=== PATIENT | female | born 1950 | race Caucasian/White ===

== ENCOUNTER → 2017-12-03 | Outpatient (CLI) | payer MEDICARE, OTHER ==
[~2017-12-03] MED LIST: ACID1TAB PO; ALLO100T PO; AMLO1CAP8 PO; CHOL10007 PO; DILT120C63 PO; DILT240C90 PO; FAMO40TA6 PO; HYDR-3820 PO; HYDR12.56 PO; IPRA3AMP INH; LEVO750T9 PO; METF-479 PO; METO-333 PO; NEBU1KIT3 MC; OMG1KC PO; PRAV40TA2 PO; UBID1CAP53 PO
--- NOTE | 2017-12-03 11:14 | Diagnostic Imaging Report ---
INDICATION: Right shoulder pain and decreased range of motion. Time of exam 11:10 AM 2 views of the right shoulder demonstrate normal glenohumeral and acromioclavicular alignment. Acromion humeral space is normal. No fracture or dislocation is identified. IMPRESSION: No acute bony abnormalities detected. Report was called to Whitley Retana nurse practitioner, by ruben at 11:13 am. Dictated by: Dictated on workstation # [id number]
== END ==
LOC: RAD 10:39
PROVIDERS: ATTEND Nurse Practitioner Family
DX: M25.511 Pain in right shoulder (principal)
CPT/HCPCS: 73030

== ENCOUNTER → 2018-01-29 | Outpatient (CLI) | payer MEDICARE, OTHER ==
[~2018-01-29] MED LIST changes: +CATHETER FLUSH 10 ML SYR IV PRN; +IOHEXOL 350 MG/ML 100 ML (OMNIPAQUE 350) VIAL IV ONE; +NS 250 ML (IVPB) BAG IV ONE
[2018-01-29 11:58] LABS: MEAN PLATELET VOLUME 9.7 FL (7.4-10.4); RED BLOOD COUNT 5.21 10^6/uL (4.35-5.85); RED CELL DISTRIBUTION WIDTH 15.3 % (10.0-14.5); WHITE BLOOD COUNT 13.4 10^3/uL (4.3-11.0)
[2018-01-29 12:20] LABS: ALANINE AMINOTRANSFERASE 12 U/L (0-55); ALBUMIN 3.7 GM/DL (3.2-4.5); ALKALINE PHOSPHATASE 107 U/L (40-136); BILIRUBIN,TOTAL 0.7 MG/DL (0.1-1.0); BUN/CREATININE RATIO 18; CALCIUM 9.5 MG/DL (8.5-10.1); CARBON DIOXIDE 26 MMOL/L (21-32); CHLORIDE 101 MMOL/L (98-107); CREATININE SERUM 0.85 MG/DL (0.60-1.30); GFR ESTIMATED > 60; GLUCOSE 98 MG/DL (70-105); POTASSIUM 3.7 MMOL/L (3.6-5.0); SODIUM 139 MMOL/L (135-145); TOTAL PROTEIN 7.2 GM/DL (6.4-8.2)
--- NOTE | 2018-01-29 12:41 | Diagnostic Imaging Report ---
INDICATION: Fever and abdominal pain. COMPARISON: None available. FINDINGS: Nonobstructive bowel gas pattern. There is a dacyk-zj-nkcyufna amount of stool present throughout the colon. Suggestion of left basilar patchy pulmonary opacities. No evidence for intraperitoneal air. Cholecystectomy. IMPRESSION: 1. Suggestion of left lower lobe pulmonary opacities. PA and lateral chest radiographs are advised for further assessment. 2. Nonobstructive bowel gas pattern. Dictated by: Dictated on workstation # [id number]
--- NOTE | 2018-01-29 13:15 | Diagnostic Imaging Report ---
PROCEDURE: CT abdomen and pelvis with and without contrast. TECHNIQUE: Precontrast acquisitions were acquired through the abdomen and pelvis. Multiple contiguous axial images were obtained through the abdomen and pelvis after the administration of intravenous contrast. INDICATION: Right-sided pain, fever. FINDINGS: The appendix is well visualized and is normal, seen only on the dynamic phase. There is a subtle hypodense nodule in the right hepatic lobe posteriorly and superiorly measuring 1 cm. This is imperceptible on the delayed images. No mass effect. Hepatic vascularity showed normal enhancement. There is no bile duct dilatation. The gallbladder is surgically absent. The pancreas is normal. The adrenals are negative. The spleen is negative. The unobstructed kidneys appeared unremarkable. There is no bowel obstruction. There is no ascites, abscess, hematoma or fluid collection. The uterus absent. There is no adnexal lesion. The urinary bladder normal. There is no pneumatosis or free gas. IMPRESSION: 1. Subtle hypodense nodule in right hepatic lobe 1 cm seen only during the dynamic images. This is of uncertain significance and etiology. Given the absence of priors to confirm its long-term stability, would suggest a repeat pre and postcontrast enhanced abdominal CT in 6 months' time. Given the otherwise normal exam, this is likely incidental. 2. Nonfocal nonacute unobstructed urinary tracts. Negative appendix with no adnexal abnormality or acute-appearing abnormalities. Dictated by: Dictated on workstation # [id number]
== END ==
LOC: RAD 11:40
PROVIDERS: ATTEND Nurse Practitioner Family
DX: K76.89 Other specified diseases of liver (principal); R50.9 Fever, unspecified
CPT/HCPCS: 36415; 74019; 74178; 80053; 85027; 85652

== ENCOUNTER 2019-12-14 10:13 | Outpatient (CLI) | payer MEDICARE, OTHER ==
[~2019-12-14] VITALS: Ht 165.1 cm; Wt 96.8 kg
[~2019-12-14 10:13] MED LIST changes: +ACHYD1T PO; +AMLO-77 PO; -AMLO1CAP8 PO; -CATHETER FLUSH 10 ML SYR IV PRN; -DILT120C63 PO; +DILT120C88 PO; -HYDR-3820 PO; -IOHEXOL 350 MG/ML 100 ML (OMNIPAQUE 350) VIAL IV ONE; -IPRA3AMP INH; +IPRA3AMP31 INH; -NS 250 ML (IVPB) BAG IV ONE
[2019-12-14] MEDS ORDERED: COLE1TAB PO (10:24)
[2019-12-14] MEDS ORDERED: CHOL200078 PO (10:24)
[2019-12-14] MEDS ORDERED: POTA10TA36 PO (10:24)
[2019-12-14] MEDS ORDERED: HYDR12.56 PO (10:24)
[2019-12-14] MEDS ORDERED: METF-397 PO (10:24)
[2019-12-14] MEDS ORDERED: DILT120C53 PO (10:24)
[2019-12-14] MEDS ORDERED: METO50TA15 PO (10:24)
[2019-12-14] MEDS ORDERED: FERR240T15 PO (10:24)
[2019-12-14] MEDS ORDERED: LORA10TA52 PO (10:24)
[2019-12-14] MEDS ORDERED: RIVA20TA PO (10:24)
== END 2019-12-14 10:31 | disposition home or self-care (01) ==
LOC: PREOP 10:13
PROVIDERS: ATTEND Internal Medicine
DX: Z01.818 Encounter for other preprocedural examination (principal)

== ENCOUNTER 2019-12-16 07:54 | Day surgery (SDC) | payer MEDICARE, OTHER ==
--- NOTE | 2019-12-13 10:18 | HISTORY AND PHYSICAL ---
DATE OF SERVICE: COLONOSCOPY HISTORY AND PHYSICAL HISTORY OF PRESENT ILLNESS: The patient is a 69-year-old white female referred by Dr. Palafox for colonoscopy for evaluation of bloody diarrhea. She reports that she actually has a longstanding history of diarrhea and has been told that she had irritable bowel syndrome in the past. Her norm is 2 to 3 stools without blood. Over the past month, she has had 5 to 6 stools with intermittent bright red blood and some mild lower abdominal cramping. She was hospitalized in June for pneumonia, it was complicated by Clostridium difficile for which she took an antibiotic, which resolved her diarrhea. She has not been on any subsequent antibiotics and reports that her symptoms previously in regards to diarrhea were much more severe than the current 5 to 6 stools and at that time, she had no evidence for blood. She had undergone colonoscopy 3 years ago, reportedly unremarkable. She was given colestipol at that time by Dr. Robbins. She reports has not noticed much change in her diarrhea. She underwent cholecystectomy 4 years ago, but reports her diarrhea really was not any worse after than prior. PAST MEDICAL HISTORY: Significant for paroxysmal atrial fibrillation. She states that she had some heart failure due to fluid overload after cholecystectomy. When her atrial fibrillation was noted she has had no problems since, but has been on Xarelto. She has a history of gout and hypertension as well as seasonal allergies and hyperlipidemia with no known history of cardiovascular disease. FAMILY HISTORY: Mother at age 93 of ischemic bowel. No family history for colon cancer is noted. Father at age of 64 of COPD, was a heavy smoker. Has a sister who at age 73 of bladder cancer and a brother who is living at age 65 post-nephrectomy for renal cell carcinoma. REVIEW OF SYSTEMS: CONSTITUTIONAL: She denies any night sweats, chills, fever or change in weight. CARDIOVASCULAR: She denies orthopnea, PND, pedal edema, dyspnea on exertion, palpitations or heart racing. PULMONARY: She denies cough, dyspnea or wheezing. PHYSICAL EXAMINATION: GENERAL: Reveals a pleasant overweight white female in no acute distress. VITAL SIGNS: Weight 213 pounds, blood pressure 120/88. HEENT: Unremarkable. No evidence for pallor. Sclerae nonicteric. NECK: Revealed no JVD, adenopathy or bruits. CHEST: Clear to auscultation. CARDIOVASCULAR: Reveals regular rate and rhythm without murmur, S3 or S4. ABDOMEN: Obese, bowel sounds positive. There is no mass or organomegaly noted. Mild tenderness without rebound or guarding in bilateral lower quadrant of the abdomen. Elsewhere nontender. No bruits noted. EXTREMITIES: Reveal no cyanosis, clubbing or edema. ASSESSMENT AND PLAN: The patient is set up for diagnostic colonoscopy for evaluation of bloody diarrhea without evidence to suggest underlying current sepsis. Considering history of irritable bowel we will be doing the procedure under anesthesia with Diprivan. Prep instructions with Suprep kit were given and questions were answered. I thank you for the referral of this pleasant lady. Job ID: [id number] DocumentID: [id number] Dictated Date: 12/07/2019 14:34:03 Grain Merchandising Manager Date: 12/07/2019 15:24:00 Dictated By: ADY LOPEZ MD
[~2019-12-16] VITALS: Ht 165.1 cm; Wt 96.8 kg
[~2019-12-16 07:54] MED LIST changes: +CHOL200078 PO; +COLE1TAB PO; +DILT120C53 PO; +FERR240T15 PO; +LORA10TA52 PO; +METF-397 PO; +METO50TA15 PO; +POTA10TA36 PO; +RIVA20TA PO
[2019-12-16] MEDS ORDERED: LACTATED RINGERS 1,000 ML IV ONE (07:58)
[2019-12-16 08:05] VITALS: BP 134/74
[2019-12-16] MEDS ORDERED: LACTATED RINGERS 1,000 ML IV PRN (08:15)
[2019-12-16] MEDS ORDERED: LIDOCAINE JELLY 2% 6 ML SYRINGE MM PRN (08:15)
[2019-12-16] MEDS ORDERED: PROPOFOL INJECTION 50 ML IV ONE (09:14)
[2019-12-16] MEDS ORDERED: LIDOCAINE JELLY 2% 6 ML SYRINGE ONE (09:22)
[2019-12-16 09:50] VITALS: BP 116/59
[2019-12-16 09:55] VITALS: BP 131/64
[2019-12-16 10:00] VITALS: BP_SYST 122; BP_SYST 150; BP_DIAS 61; BP_DIAS 76
[2019-12-16 10:30] VITALS: BP 120/71
[2019-12-16 10:58] VITALS: BP 120/71
--- NOTE | 2019-12-16 11:29 | Anesthesia-General Post-Op ---
MAC Patient Condition Mental Status/LOC: Same as Preop Cardiovascular: Satisfactory Nausea/Vomiting: Absent Respiratory: Satisfactory Pain: Controlled Complications: Absent Post Op Complications Complications None Follow Up Care/Instructions Patient Instructions None needed. Anesthesiology Discharge Order Discharge Order Patient is doing well, no complaints, stable vital signs, no apparent adverse anesthesia problems. No complications reported per nursing. ALEX YARBROUGH CRNA Dec 16, 2019 11:29
--- NOTE | 2019-12-16 12:03 | Pre-Op Note & Conscious Sedat ---
Pre-Operative Progress Note H&P Reviewed The H&P was reviewed, patient examined and no changes noted. Date H&P Reviewed: Dec 16, 2019 Time H&P Reviewed: 08:00 Conscious Sedation Pre-Proced ASA Score 3 For ASA 3 and 4: Consider anesthesia and medical clearance. Also, for patients with a history of failed moderate sedation consider anesthesia. Airway Lungs Heart ASA score ASA 1: a normal healthy patient ASA 2: a patient with a mild systemic disease (mid diabetes, controlled hypertension, obesity ASA 3: a patient with a severe systemic disease that limits activity (angina, COPD, prior Myocardial infarction) ASA 4: a patient with an incapacitating disease that is a constant threat to life (CHF, renal failure) ASA 5: a moribund patient not expected to survive 24 hrs. (ruptured aneurysm) ASA 6: a declared brain- patient whose organs are being harvested. For emergent operations, add the letter E after the classification Mallampati Classification Grade 2 Sedation Plan Analgesia, Amnesia, Plan communicated to team members, Discussed options with patient/fam, Discussed risks with patient/fam The patient is an appropriate candidate to undergo the planned procedure, sedation, and anesthesia. The patient immediately re-assessed prior to indication. ADY LOPEZ MD Dec 16, 2019 12:03
--- NOTE | 2019-12-17 00:27 | OPERATIVE REPORT ---
DATE OF SERVICE: COLONOSCOPY SUMMARY INDICATIONS FOR THE PROCEDURE: Diagnostic colonoscopy for evaluation of bloody diarrhea. The patient was placed in the left lateral decubitus position. Prior to undergoing colonoscopy, digital rectal evaluation was performed. Anal sphincter tone was normal and the perianal reflexes intact. No abnormalities were noted on digital inspection of the anal canal or distal rectal vault. The colonoscope was then inserted into the rectum and under direct visualization advanced to the cecum. The cecum was identified by identification of the ileocecal valve and cecal strap. Photographic documentation was obtained. A careful inspection was made as the colonoscope was withdrawn. FINDINGS: There were no evidence for internal and external hemorrhoids. No blood was noted in the colon. There was some mild erythema noted in the distal rectum not to the usual degree to suggest underlying ulcerative proctitis. However, biopsies were obtained for this as well as for evaluation for underlying microscopic colitis. If biopsies are unremarkable I strongly suspect irritable bowel syndrome. The patient's intermittent diarrhea is long-standing and she did have a lot of spasm during the procedure, which was done under Diprivan anesthesia, irritable bowel syndrome,. The patient was reassured by today's findings. If biopsies do reveal any evidence for ulcerative proctitis or microscopic colitis, we will make further treatment recommendations. I thank you for the referral of this pleasant lady. Job ID: [id number] DocumentID: [id number] Dictated Date: 12/16/2019 12:38:24 Textiles Sales Representative Date: 12/16/2019 17:38:37 Dictated By: ADY LOPEZ MD MTDD
== END 2019-12-16 11:10 | disposition home or self-care (01) ==
LOC: ENDO 07:54
PROVIDERS: ATTEND Internal Medicine
DX: K63.89 Other specified diseases of intestine (principal); R19.7 Diarrhea, unspecified; I48.0 Paroxysmal atrial fibrillation; I10 Essential (primary) hypertension; J30.2 Other seasonal allergic rhinitis; M10.9 Gout, unspecified; Z79.01 Long term (current) use of anticoagulants

== ENCOUNTER → 2020-05-02 | Outpatient (CLI) | payer MEDICARE, OTHER ==
--- NOTE | 2020-05-02 14:42 | Diagnostic Imaging Report ---
INDICATION: Pain and swelling. COMPARISON: None available. TECHNIQUE: Three radiographs of the right knee dated May 02, 2020. FINDINGS: No acute fracture or dislocation. No destructive osseous process. Joint spaces are well maintained for age. No joint effusion. No suspicious radiopaque foreign body. IMPRESSION: Unremarkable examination for age without acute osseous abnormality. Dictated by: Dictated on workstation # [id number]
== END ==
LOC: RAD 13:52
PROVIDERS: ATTEND Nurse Practitioner Family
DX: M25.561 Pain in right knee (principal); M25.461 Effusion, right knee
CPT/HCPCS: 73562

== ENCOUNTER → 2021-11-13 | Outpatient (CLI) | payer MEDICARE, OTHER ==
[~2021-11-13] VITALS: Ht 165 cm; Wt 91.0 kg
[~2021-11-13] MED LIST changes: +ACETAMINOPHEN 500 MG TAB (TYLENOL) PO PRN; +EPINEPHrine INJECTION 1 MG/ML AMP IM PRN; +ONDANSETRON 4 MG/2 ML (SDV) Z0FRAN IV PRN; -POTA10TA36 PO; +POTA10TA37 PO; +SOTROVIMAB 500 MG/NS 50 ML IVPB IV ONE; +diphenhydrAMINE 50 MG/ML INJ (BENADRYL) IV PRN
[2021-11-13 08:17] VITALS: BP 108/66
[2021-11-13 09:58] VITALS: BP 116/65
== END ==
LOC: INFUSION 07:48
PROVIDERS: ATTEND Nurse Practitioner Family
DX: U07.1 COVID-19 (principal)